=== PATIENT | female | born 1995 | race Caucasian/White ===

== ENCOUNTER → 2021-10-10 10:39 | Outpatient (CLI) | payer OTHER, SELFPAY | PROVIDERS: Visit Provider Obstetrics & Gynecology | DX: Z34.82 Encounter for supervision of other normal pregnancy, second trimester (principal); Z3A.20 20 weeks gestation of pregnancy | CPT/HCPCS: 87086 ==

== ENCOUNTER → 2021-10-17 10:23 | Outpatient (CLI) | payer OTHER, SELFPAY ==
--- NOTE | 2021-10-17 10:24 | DI.US.S_ITS ---
PROCEDURE: US OB >= 14 WEEKS FETUS INDICATIONS: ANATOMY SCAN OUTSIDE/PRIOR DATING DATA: Last menstrual period (LMP): May 19, 2021. LMP-based estimated date of delivery (AYUSH): February 23, 2022. First dating scan (date and location): August 08, 2021 in clinician's office. Estimated date of delivery (AYUSH) from first dating scan: February 26, 2022. The calculations are made using the clinical ultrasound AYUSH of February 26, 2022. TECHNIQUE: Real-time scanning was performed of the fetus, with image documentation and biometric measurements. Endovaginal scanning: Not performed COMPARISON: None. FINDINGS: General: A single living intrauterine gestation is present. Presentation: Variable. Placenta: Placental position is anterior , without previa. Amniotic fluid index: 14.5 cm, normal range is 5-24 cm. Single deepest vertical pocket is 4.9 cm. heart rate: 145 beats per minute. Maternal cervical canal: 4.3 cm long. Normal lower limit is 2.5 cm. biometrics: Biparietal diameter: 4.97 cm, 21 weeks and 0 days Head circumference: 18.58 cm, 20 weeks and 6 days Abdominal circumference: 16.27 cm, 21 weeks and 2 days Femur length: 3.68 cm, 21 weeks and 5 days Clinically estimated gestational age: 21 weeks and 1 day Composite gestational age from present scan: 21 weeks and 2 days Estimated weight and percentile: 424 g which correlates with the 61st percentile based off gestational age. Anatomic survey: Neuro: Ventricles are non-dilated at less than 10 mm. Cisterna magna is normal at 3-11 mm. Cerebellum is normal in size and morphology. Nuchal skin fold: Normal at less than 6 mm between 14-21 weeks gestational age. Face: Nose and lips, facial profile are normal. Spine: No evidence for spina bifida. Heart: 4-chambered heart is present, with normal ventricular outflow tracts. Diaphragm: Diaphragm is intact. Stomach: Left-sided stomach is present. Kidneys: No hydronephrosis. Normal is less than 5 mm in 2nd trimester, less than 7 mm in 3rd trimester. Cord: 3-vessel cord has orthotopic insertion. Bladder: Normal in size. Extremities: All 4 extremities identified. IMPRESSION: Single living intrauterine gestation with estimated sonographic gestational age of approximately 21 weeks and 2 days. Expected interval growth has occurred. Estimated weight is approximately 424 g which correlates with the 61st percentile based off gestational age. Otherwise, normal routine second-trimester anatomic screening survey. We strive to produce accurate, complete, and clear reports of imaging services. To assist us in improving patient care, this report was composed using standard report templates and voice recognition software. Therefore, it may contain abnormal punctuation, insertions and/or omissions. Occasional wrong-word or sound-alike substitutions may occur. Though we review the report and make efforts to correct it, we do recommend that the report be read carefully in proper context to recognize any text inaccuracies. Dictated by: Familia Escoto M.D. on 10/19/2021 at 16:53 Approved by: Familia Escoto M.D. on 10/19/2021 at 16:58
== END ==
PROVIDERS: Referring Provider Obstetrics & Gynecology; Visit Provider Obstetrics & Gynecology
DX: Z34.82 Encounter for supervision of other normal pregnancy, second trimester (principal); Z3A.21 21 weeks gestation of pregnancy
CPT/HCPCS: 76811

== ENCOUNTER → 2022-01-12 11:29 | Outpatient (CLI) | payer OTHER, SELFPAY | PROVIDERS: PCP Family Medicine; Visit Provider Obstetrics & Gynecology | DX: Z34.83 Encounter for supervision of other normal pregnancy, third trimester (principal); R31.9 Hematuria, unspecified | CPT/HCPCS: 87086 ==

== ENCOUNTER → 2022-01-25 13:45 | Outpatient (CLI) | payer OTHER, SELFPAY | PROVIDERS: PCP Family Medicine; Visit Provider Physician Assistant Medical | DX: Z34.90 Encounter for supervision of normal pregnancy, unspecified, unspecified trimester (principal); Z3A.35 35 weeks gestation of pregnancy | CPT/HCPCS: 87086 ==

== ENCOUNTER → 2022-02-02 13:33 | Outpatient (CLI) | payer OTHER, SELFPAY ==
[2022-02-03 11:39] LABS: Strep Grp B PCR NEG for Grp B Strep
== END ==
PROVIDERS: PCP Family Medicine; Visit Provider Specialist
DX: Z34.83 Encounter for supervision of other normal pregnancy, third trimester (principal); Z3A.36 36 weeks gestation of pregnancy
CPT/HCPCS: 87653

== ENCOUNTER 2022-02-16 15:05 | Outpatient (CLI) | payer OTHER, SELFPAY ==
[2022-02-16 16:38] LABS: Add Manual Diff / Slide Review NO; Basophils Absolute Auto 100 /uL (0-100); Eosinophils Absolute Auto 100 /uL (0-450); Eosinophils Percent Auto 0.5 % (2-4); Hematocrit 36.2 % (36-46); Hemoglobin 12.4 g/dL (12.0-16.0); Lymphocytes Absolute Auto 3500 /uL (1100-4500); Lymphocytes Percent Auto 36.3 % (25-40); Mean Corpuscular HGB Conc 34.1 % (30-36); Mean Corpuscular Hemoglobin 29.8 PG (26-34); Mean Corpuscular Volume 87.2 fL (80-100); Monocytes Absolute Auto 800 /uL (0-900); Monocytes Percent Auto 8.1 % (3-14); Neutrophils Absolute Auto 5200 /uL (1500-7000); Neutrophils Percent Auto 54.1 % (50-75); Platelet Count 208 X10^3/uL (150-400); Red Blood Cell Count 4.16 X10^6/uL (4.0-5.2); Red Cell Distribution Width 13.1 % (11.6-14.8); White Blood Cell Count 9.7 X10^3/uL (4.5-11.0)
[2022-02-16 17:06] LABS: Aspartate Aminotransferase 20 IU/L (14-36); BUN Creatinine Ratio 17.3 (6-22); Blood Urea Nitrogen 9 mg/dL (7-17); Estimated Glomerular Filt Rate > 60 mL/min (>60); Uric Acid 4.8 mg/dL (2.5-6.2)
[2022-02-16 17:27] LABS: Bilirubin Urine UA NEGATIVE (NEGATIVE); Color Urine UA YELLOW; Glucose Urine UA TRACE g/dL (Negative); Ketones Urine UA NEGATIVE (NEGATIVE); Leukocyte Esterase Urine UA NEGATIVE (NEGATIVE); Nitrite Urine UA NEGATIVE (Negative); Occult Blood Urine UA 3+ (Negative); Protein Urine UA TRACE (Negative); Specific Gravity Urine UA 1.015 (1.000-1.035); Urobilinogen Urine UA 0.2 E.U./dL (0.2)
[2022-02-16 17:38] LABS: Appearance Urine UA Slightly Cloudy
[2022-02-16 17:54] LABS: Amorphous Sediment Urine 1+; RBC Urine 10-30/HPF (0-5/HPF); Squamous Epithelial Cell Urine 1-5 /HPF (0-5/HPF); WBC Urine 1-5/HPF (0-5/HPF)
[2022-02-16 17:55] LABS: Bacteria Urine Few (2-10); Culture Indicated Urine Specimen Cultured
== END 2022-02-16 17:47 | disposition home or self-care (01) ==
LOC: OB 02-20 14:12
PROVIDERS: PCP Family Medicine; Referring Provider Obstetrics & Gynecology; Visit Provider Obstetrics & Gynecology
DX: O26.893 Other specified pregnancy related conditions, third trimester (principal); R51.9 Headache, unspecified; Z3A.39 39 weeks gestation of pregnancy
CPT/HCPCS: 59025; 81001; 84450; 84550; 85025; 87086; G0378; G0379

== ENCOUNTER 2022-02-18 09:35 | Outpatient (CLI) | payer OTHER, SELFPAY | END 2022-02-18 10:28 | disposition home or self-care (01) | LOC: OB 02-20 14:12 | PROVIDERS: PCP Family Medicine; Referring Provider Obstetrics & Gynecology; Visit Provider Obstetrics & Gynecology | DX: O26.893 Other specified pregnancy related conditions, third trimester (principal); R51.9 Headache, unspecified; Z3A.38 38 weeks gestation of pregnancy | CPT/HCPCS: 59025; G0378; G0379 ==

== ENCOUNTER 2022-02-20 06:53 | Inpatient (IN) | payer OTHER, SELFPAY ==
[2022-02-20 07:50] VITALS: BP 136/90
[2022-02-20] MEDS: LACTATED RINGERS 1,000 ML 100 ML IV ×3 (07:55→19:01)
--- NOTE | 2022-02-20 08:07 | P.HPOB_ITS ---
OB HPI Date/Time Date of admission: 02/20/22 Date Patient Seen: 02/20/22 Time Patient Seen: 07:20 History of Present Condition Chief complaint: induction AYUSH Calculator Estimated Delivery Date Method Current WG Current Estimate 02/23/22 LMP (Uncertain) 39w 4d Other Estimates 02/26/22 Ultrasound #2 39w 1d Estimated Gestational Age (weeks): 39+4 : 5 Para: 2 care: good care, initiated at week # (8), number of visits (12) and pounds weight gain (26) Dating criteria OB: LMP confirmed by 1st trimester US Ultrasounds: normal 1st trimester US and normal mid trimester US Obstetrical complications: none Medical complications OB: gastrointestinal (ULCERATIVE COLITIS) Indications Indication for induction OB: gestational HTN/pre-eclampsia Preadmission Labs Last OB Lab Results: Blood Type A Positive 02/20/22 07:55 Antibody Screen Negative 02/20/22 07:55 Hematocrit 35.7 % (36-46) L 02/20/22 07:55 Hemoglobin 12.0 g/dL (12.0-16.0) 02/20/22 07:55 Group B Streptococcus (PCR) Neg for grp b strep 02/02/22 13:33 -: Urine: negative -: PAP smear: Normal External Labs -: Urine: negative Glucose Tolerance Testin hr (117) Prior (ies) Past Pregnancies Del. Date GA/Weeks Labor Lgth Wt Sex Route Outcome Anesthesia Place Delv Breastfeed Preg Comp Name 12/31/13 39 21 6 lb 3 oz Male vaginal live - full ter m epidural IH Abigail Tolbert/Dr Morris 5 months gestational diabetes Blu 03/06/16 40 6 7 lb 11 oz Female vaginal live - full te rm epidural Prov, [place] 3 weeks : pumped X 12 weeks other Gayatri 08/17/20 9 spontaneous 03/13/21 5 spontaneous spontaneous Delivery Date: 12/31/13 Last Updated by: Tamara Alonso RDaria. *Induction Delivery Date: 03/06/16 Last Updated by: Tamara Alonso R.N. *Ulcerative Colitis started at 28-29 weeks; Hospitalized X 9 days at 3 weeks PP; Remicade Rx - stopped BF. *Depressed PP - brushed off her report; told her that it was just the steroids. Delivery Date: 03/13/21 Last Updated by: Myrna Armando R.N. Barely missed period, no complications Evaluation Evaluation Baseline heart rate: 145 Variability: Moderate (11-25) monitor accelerations: Present Monitor Decelerations: Absent Status: Category l Dilation (cm): 2 Effacement (%): 85 Dilation: 1-2 cm Effacement: >/=80% station: -1 Position of cervix: mid Consistency: soft Powell score: 9 PFSH Medical History Abscess of multiple sites of buttock (~2013) Acquired short leg syndrome on left Acute flank pain (~07/2020) Anemia (~03/2016) Anxiety (~02/2016) Autoimmune disease Bacterial vaginosis Depression (~02/2016) Gestational diabetes (~2012) History of flexible sigmoidoscopy (~2015) History of nephrolithiasis (~07/20/20) IBS (irritable colon syndrome) (~2013) Inflammatory bowel diseases (IBD) Kidney stones (~2012) Low back pain during in third trimester Migraine (~02/2016) Nicotine dependence Pelvic somatic dysfunction Psoriasis (~04/2017) Rib pain on left side Sacral region somatic dysfunction Segmental and somatic dysfunction of abdomen and other regions Segmental and somatic dysfunction of rib cage (spontaneous vaginal delivery) (~12/31/13) (spontaneous vaginal delivery) (~03/06/16) Thoracic region somatic dysfunction Ulcerative colitis Surgical History History of colonoscopy (~2016) S/P wisdom tooth extraction (~2019) Family History Mother Congenital heart defect Arthritis Father Family estrangement Sociopathic personality disorder Grandmother Ulcerative colitis Kidney stones Skin cancer Grandfather Altered cardiac tissue perfusion Total knee replacement status Grandmother Family estrangement No known health problems Grandfather Family estrangement No known health problems Social History marital status: number of children: 2 household members: spouse and children lives independently: Yes housing: house pets and animals: No education level: high school occupational status: employed current occupational exposures/hazards: No (Limited) Previous occupational history: Prior [employer] susie/mormon: Zoroastrianism special susie needs: No seatbelt use: always water heater temp set < 120 deg: Yes (Will check) working smoke detector in home: Yes fire extinguisher in home: No carbon monox detector in home: Yes firearms in home: No do you feel safe at home: No Smoking Status: Never smoker Tobacco: How many years used: 2 second hand exposure: No alcohol intake: former substance use type: does not use and marijuana during the past year weight has: remained stable well-balanced diet: daily or most days daily servings fruits/ve-4 caffeine: Yes Type(s) of exercise: walking Meds Home Medications and Allergies Home Medications Medication Instructions Recorded Confirmed Type prenat.vits,jennifer,[id number] 1 tab PO DAILY 07/27/20 02/16/22 History metronidazole 0.75 % topical cream 1 applic topical DAILY 08/03/20 02/16/22 History ondansetron 4 mg disintegrating 4 mg PO Q6H PRN nausea and 01/12/22 02/16/22 Rx tablet vomiting #10 tabs oxycodone-acetaminophen 5 mg-325 1 tab PO Q4-6H PRN pain #14 tabs 01/12/22 02/16/22 Rx mg tablet (Percocet) Allergies Allergy/AdvReac Type Severity Reaction Status Date / Time NSAIDS (Non-Steroidal AdvReac Intermediate Flare of Verified 02/16/22 13:40 Anti-Inflamma Colitis No Known Allergies Allergy Uncoded 02/16/22 13:40 OB Exam Narrative Exam Narrative: GENERALLY: PATIENT IS SITTING UP IN BED, NO ACUTE DISTRESS Lungs: Clear to auscultation bilaterally Cardiovascular: Regular rate and rhythm Fundal height: 39 cm Estimated weight: 7-1/2 lb Extremities: 1+ edema, negative clonus Objective Labs Result Diagrams: 02/20/22 07:55 Assessment and Plan Assessment and Plan Assessment and Plan narrative: Assessment: 27-year-old 5 para 2 at 39-,4/7 weeks gestation for induction of labor due to gestational hypertension Favorable cervix Vertex presentation Plan: Pitocin per protocol 2 Epidural as necessary Expected management to spontaneous vaginal delivery Time Spent with Patient Total time spent with greater than 50% in coordination of care (as documented) at patient's floor/unit and/or counseling patient:: 15-24 minutes
[2022-02-20 08:13] LABS: Add Manual Diff / Slide Review NO; Basophils Absolute Auto 100 /uL (0-100); Basophils Percent Auto 0.7 % (0-2); Eosinophils Absolute Auto 100 /uL (0-450); Eosinophils Percent Auto 0.7 % (2-4); Hematocrit 35.7 % (36-46); Lymphocytes Absolute Auto 2100 /uL (1100-4500); Lymphocytes Percent Auto 19.9 % (25-40); Mean Corpuscular HGB Conc 33.6 % (30-36); Mean Corpuscular Hemoglobin 29.6 PG (26-34); Monocytes Absolute Auto 500 /uL (0-900); Monocytes Percent Auto 5.2 % (3-14); Neutrophils Absolute Auto 7800 /uL (1500-7000); Neutrophils Percent Auto 73.5 % (50-75); Platelet Count 206 X10^3/uL (150-400); Red Blood Cell Count 4.06 X10^6/uL (4.0-5.2); Red Cell Distribution Width 13.4 % (11.6-14.8); White Blood Cell Count 10.6 X10^3/uL (4.5-11.0)
[2022-02-20] MEDS: OXYTOCIN PREMIX 30 UNIT/500 ML PLAST..BAG IV (08:13)
[2022-02-20 08:42] LABS: COVID19 -Nasal RAPID Negative (Negative)
--- NOTE | 2022-02-20 13:10 | PM.OBPNLAB ---
Date/Time Date Patient Seen: 02/20/22 Time Patient Seen: 13:10 Pain Control Pain control: tolerating well Pelvic Exam Dilation (cm): 2 Effacement (%): 85 station: -1 Amniotic membrane status: Intact Contractions Contractions on admission: irregular Monitor mode: External Pitocin rate (mU/min): 11 Contraction frequency (min): 4 Contraction duration (min): 1 Contraction pattern: Regular Contraction intensity: Mild Status status: Category l Heart Rate Baseline: 140 Monitor Accelerations: Present Monitor Decelerations: Absent Monitor Variability: Moderate Assessment and Plan Assessment: induction ongoing Comments: Will wait on AROM
--- NOTE | 2022-02-20 17:29 | PM.OBPNLAB ---
Date/Time Date Patient Seen: 02/20/22 Time Patient Seen: 17:29 Pain Control Pain control: tolerating well Pelvic Exam Dilation (cm): 3 Effacement (%): 85 station: -1 Amniotic membrane status: Intact Contractions Contractions on admission: irregular Monitor mode: External Pitocin rate (mU/min): 17 Contraction frequency (min): 3 Contraction duration (min): 1 Contraction pattern: Regular Contraction intensity: Moderate Status status: Category l Heart Rate Baseline: 130 Monitor Accelerations: Present Monitor Decelerations: Absent Monitor Variability: Moderate Assessment and Plan Assessment: induction ongoing Comments: AROM with copious clear amniotic fluid
[2022-02-20] MEDS: FENT 2MCG/ML BUPIV 0.125% EPI 200 MCG/100 ML PLAST..BAG 7 MCG EPIDURAL (19:33)
--- NOTE | 2022-02-20 19:36 | P.PCN_ITS ---
Regional Block Pre-procedure Procedure: Continuous Lumbar Epidural for L&D Attending OB provider: Carlie Morris PMH/ROS narrative: P2 term labor, no complications except mildly elevated blood pressure upon admission. ASA Class: II Labs: Hct 35.7 % (36-46) L 02/20/22 07:55 Plt Count 206 X10^3/uL (150-400) 02/20/22 07:55 Medications: Current Medications Generic Name Dose Route Start Last Admin Trade Name Freq PRN Reason Stop Dose Admin Calcium Carbonate 1,000 mg 02/20/22 07:26 Calcium Carbonate 500 Mg Tab PO Q2HR PRN Dyspepsia Carboprost Tromethamine 250 mcg 02/20/22 07:26 Carboprost 250 Mcg/Ml Ampul IM Q90M PRN Bleeding Fentanyl 50 mcg 02/20/22 07:26 Fentanyl 100 Mcg/2 Ml Inj IV Q1H PRN Pain, Moderate (4-6) Lactated Ringer's 1,000 mls @ 100 mls/hr 02/20/22 07:30 02/20/22 19:01 Lactated Ringers IV 100 mls/hr CONT LAMBERTO Administration Oxytocin/Lactated Ringer's 30 unit in 500 mls @ 200 mls/hr 02/20/22 07:26 Oxytocin Premix IV CONT PRN Bleeding Protocol Tranexamic Acid 1,000 mg/ 100 mls @ 200 mls/hr 02/20/22 07:26 Sodium Chloride IV NOW PRN Bleeding Oxytocin/Lactated Ringer's 30 unit in 500 mls @ 3 mls/hr 02/20/22 07:30 02/20/22 08:13 Oxytocin Premix IV 3 milliunit/min TITRATE LAMBERTO 3 mls/hr Administration Protocol 3 MILLIUNIT/MIN Methylergonovine Maleate 0.2 mg 02/20/22 07:26 Methylergonovine 0.2 Mg Tablet PO Q6HR PRN Heavy Bleeding Methylergonovine Maleate 0.2 mg 02/20/22 07:26 Methylergonovine 0.2 Mg/Ml Vial IM NOW PRN Bleeding Misoprostol 800 mcg 02/20/22 07:26 Misoprostol 200 Mcg Tablet GA NOW PRN Bleeding Misoprostol 1,000 mcg 02/20/22 07:26 Misoprostol 200 Mcg Tablet GA NOW PRN Bleeding Misoprostol 400 mcg 02/20/22 07:26 Misoprostol 200 Mcg Tablet SL NOW PRN Bleeding Naloxone HCl 0.2 mg 02/20/22 07:26 Naloxone 0.4 Mg/Ml Vial IV Q2MIN PRN Opiate Reversal Ondansetron HCl 4 mg 02/20/22 07:26 Ondansetron 4 Mg/2 Ml Inj IV Q4HR PRN Nausea And Vomiting Oxytocin 10 unit 02/20/22 07:26 Oxytocin 10 Unit/Ml Vial IM NOW PRN Bleeding Allergies: Allergies Allergy/AdvReac Type Severity Reaction Status Date / Time NSAIDS (Non-Steroidal AdvReac Intermediate Flare of Verified 02/16/22 13:40 Anti-Inflamma Colitis No Known Allergies Allergy Uncoded 02/16/22 13:40 Procedure Insertion date: 02/20/22 Insertion time: 19:20 Prep/Local: betadine x3 and 1% lidocaine Interspace: L2-3 Patient position: sitting Needle: 18 gauge [employer] (CSE: 27g Pencan through Hustead, clear CSF, 1mL 0.25% bupiv MPF w/ epi) Loss of resistance with: saline MITESH at (cm): 6 Catheter placed at SKIN (cm): 11 Catheter in SPACE (cm): 5 Insertion: No CSF, No Blood, No Paresthesia with insertion, No Paresthesia with injection and No Test dose reaction Initial Medications TEST DOSE time: : TEST DOSE: 1.5% lidocaine with epinephrine 1:200k (mL): 3 BOLUS DOSE time: 19:35 BOLUS DOSE (mL): 5 BOLUS DOSE med: other (infusate) Infusion INFUSION: 0.125% bupivacaine and with fentanyl 2 mcg/mL Initial rate (mL/hr): 7 Post-procedure Anesthesia time START: 19:08 Anesthesia time END: 06:16 Post-procedure Anesthesia Assessment: Yes CV function: HR/BP stable, Yes Resp fu nction: RR/sat/airway adequate, Yes Mental status appropriate and No Anesthesia complications
[2022-02-21] MEDS: LACTATED RINGERS 1,000 ML 100 ML IV (03:08)
[2022-02-21] MEDS: FENT 2MCG/ML BUPIV 0.125% EPI 200 MCG/100 ML PLAST..BAG 6 MCG EPIDURAL (03:09)
--- NOTE | 2022-02-21 06:30 | PM.OBPRVD ---
Events: Labor Induction Labor & Delivery Delivery date: 02/21/22 Cervical ripening method: none Induction method: per pitocin protocol Delivery augmentation: rupture of membranes Delivery monitor: external FHT and external uterine Route of delivery: Episiotomy description: None L&D Laceration Description: Superficial (Periurethral and vaginal) Delivery repair: chromic Estimated blood loss (mL): 100 Anesthesia Type: Epidural Complications: None Narrative: Patient complete and pushed x2 6:06 a.m. a live male delivered spontaneously in the JAIME presentation over an intact perineum. A nuchal cord x1 was reduced on the perineum. The remainder of the body delivered without difficulty and was placed on mom's abdomen. The cord was double clamped and cut after it stopped pulsing. Cord bloods were obtained. Pitocin was given in the IV fluids. The placenta delivered intact with a three-vessel cord at 6:14 a.m. fundus was massaged to firm. A superficial periurethral and vaginal laceration at the introitus were noted and repaired with 3-0 chromic in the usual fashion. Hemostasis was achieved. Estimated blood loss 100 cc. Apgars 8 at 1 minute and 9 at 5 minutes. . Epidural analgesia. Mom and infant stable to recovery. Baby 1: Infant gender: Male Presentation: vertex Position: Left Occiput Anterior Placenta delivery description: Spontaneous Cord Vessel Description: 3 Vessels, Nuchal Cord (X1), Loose, Reduced and Clamped/Cut (After the cord stopped pulsing) score (1 min): 8 score (5 min): 9 weight: 7 lb 11 oz Plan for aftercare: Routine care
[2022-02-21 07:00] VITALS: BP 145/79; PULSE 88; RESP 17; TEMP 36.7
[2022-02-21] MEDS: ACETAMINOPHEN 325 MG TABLET 650 MG PO ×3 (10:31→23:35)
[2022-02-21] MEDS: PRENATAL VIT,CALC/IRON/FOLIC 1 TABLET 1 TAB PO (10:32)
[2022-02-21] MEDS: DOCUSATE 100 MG CAPSULE PO (10:32)
[2022-02-21] MEDS: LANOLIN OINT 7 GM 1 APPLIC TOP (16:33)
[2022-02-22] MEDS: ACETAMINOPHEN 325 MG TABLET 650 MG PO (05:29)
[2022-02-22 06:50] LABS: Hematocrit 34.6 % (36-46); Hemoglobin 11.9 g/dL (12.0-16.0)
[2022-02-22 08:34] VITALS: BP 147/102; PULSE 106
[2022-02-22] MEDS: PRENATAL VIT,CALC/IRON/FOLIC 1 TABLET 1 TAB PO (08:34)
[2022-02-22] MEDS: LABETALOL 100 MG TABLET PO (08:34)
[2022-02-22] MEDS: DERMOPLAST SPRAY 20% 60 ML 1 SPRAY TOP (10:40)
--- NOTE | 2022-03-07 12:38 | PM.OBDS.1 ---
Discharge Providers Provider Date of admission: 02/20/22 06:53 Discharge Date: 02/21/22 Primary care physician: Matt Manzano DO Consults: 02/22/22 06:27 Consult to Shock Absorber Installer Routine Comment: Discharge provider: Carlie Morris MD Summary Hospital Course Date Patient Seen: 02/22/22 Time Patient Seen: 09:30 Diagnoses: 39-4/7 weeks gestation Gestational hypertension Induction of labor with Pitocin Spontaneous vaginal delivery Superficial periurethral and vaginal laceration and repair Hospital Course: Patient is a 27-year-old 5 para 3 presented on February 20, 2022 at 39-,4/7 weeks gestation for induction of labor with Pitocin due to gestational hypertension. She was started on Pitocin. She had artificial rupture of membranes. She received an epidural for pain management. She progressed slowly to complete dilation and on February 21, 2022 she had a spontaneous vaginal delivery without complication. Her course was unremarkable and she was discharged home on February 22, 2022. Peripartum Data Infant Delivery Method: Natural Vaginal Laceration Description: Superficial (Periurethral and vaginal) Episiotomy description: None Procedures: Pitocin induction of labor Artificial rupture of membranes Spontaneous vaginal delivery Epidural analgesia Repair of superficial periurethral and vaginal laceration complications: none 1: Gender: Male Disposition of : home Status at Discharge Cognitive/behavioral status at discharge: oriented Functional status at discharge: independent ambulation Overall status at discharge: patient is progressing back to baseline Time Spent with Patient Time attestation: Total time spent providing and/or coordinating discharge services: Time spent: Less than 30 minutes Objective Labs Result Diagrams: 02/22/22 06:23 Exam Narrative Exam Narrative: Generally: Patient is sitting up in bed, holding infant, no acute distress Fundus: Firm at U -1 Extremities: 1+ edema, negative Homans Discharge Plan Discharge Plan Patient Disposition: Home Provider Discharge Comment: Call with fever, chills, or bleeding vaginally more than a pad in an hours Tylenol 650 mg every 6 hours as needed Discharge orders & Medications Prescriptions: New labetalol 100 mg tablet 100 mg PO BID Qty: 60 4RF Continued metronidazole 0.75 % cream 1 applic topical DAILY prenat.vits,jennifer,[id number] Tablet 1 tab PO DAILY Discontinued oxycodone-acetaminophen [Percocet] 5-325 mg tablet 1 tab PO Q4-6H PRN (Reason: pain) Qty: 14 0RF ondansetron 4 mg tablet,disintegrating 4 mg PO Q6H PRN (Reason: nausea and vomiting) Qty: 10 0RF No Action oxycodone-acetaminophen 5-325 mg tablet 1 tab PO Q6H PRN (Reason: pain) Qty: 14 0RF Follow up/Referrals: Carlie Morris MD [Physician] - 04/05/22 3:30 pm (Please arrive 15 minutes prior to appointment time! If you would like an IUD, please call the office as soon as possile to obtain prior authorization.) Diet/Activity/Treatments Diet: Regular Activity: Nothing in the vagina for 6 weeks Skin/Wound/Dressing Care Report to your healthcare provider any signs of infection, such as:: chills, fever, increased pain and unusual drainage Visit Report/Discharge Packet Instructions: Pre-eclampsia, DI for Labor and Delivery, Vaginal Discharge Data Primary Care Provider: Matt Manzano
== END 2022-02-22 11:29 | disposition home or self-care (01) | DRG 806 ==
PROVIDERS: Admitting Provider Obstetrics & Gynecology; PCP Family Medicine; Referring Provider Obstetrics & Gynecology; Visit Provider Obstetrics & Gynecology
DX: O13.4 Gestational [pregnancy-induced] hypertension without significant proteinuria, complicating childbirth (principal); O99.62 Diseases of the digestive system complicating childbirth; K51.90 Ulcerative colitis, unspecified, without complications; Z37.0 Single live birth; Z3A.39 39 weeks gestation of pregnancy; O70.0 First degree perineal laceration during delivery; O69.81X0 Labor and delivery complicated by cord around neck, without compression, not applicable or unspecified; Z20.822 Contact with and (suspected) exposure to COVID-19
CPT/HCPCS: 01967; 36415; 59050; 59400; 76815; 85014; 85018; 85025; 86850; 86900; 86901; 87635; C9803; G0379; J2590